=== PATIENT | male | born 1975 | race Caucasian/White ===

== ENCOUNTER 2022-02-06 09:49 | Emergency (ER) | payer BC ==
[2022-02-06] MEDS ORDERED: Aspirin 81 MG Tab.Chew PO ONE (10:29)
== END 2022-02-06 11:55 | disposition home or self-care (01) ==
LOC: JD.ED 09:49
DX: M54.89 Other dorsalgia (principal)
CPT/HCPCS: 36415; 71046; 80053; 84484; 85025; 85379; 93005; 99284; A9270; 93010